=== PATIENT | male | born 1975 | race Caucasian/White ===

== ENCOUNTER → 2016-09-02 | Outpatient (CLI) | payer BC ==
[~2016-09-02] MED LIST: ASPI81TA28 PO; DIPH50TA10 PO; ERGO1CAP35 PO; LEVO50TA PO; LEVO50TA6 PO; LISI-725 PO; MULT-506 PO; PRED20TA PO; PRLSR20 PO
--- NOTE | 2016-09-03 05:43 | PAP/PSG TECHNICIAN REPORT ---
[facility] Pearler Polysomnogram Report Study name: None Report date: 09/03/2016 Study date: 09/02/2016 Referring Physician: Genia Roy M.D. Name: RADHA BOWERS Interpreting Physician: Renzo Roy M.D. Date of : 1975 Pearler: Ladan Lira, PSGT. Sex: Male Age: 41 StudyType: PSG Weight: 304 lbs Height: 41 years, Height 5' 11" Neck Circum:17 inches BMI: 42.39 Medications: synthroid 25 mg. Patient History 41 YR. OLD MALE IN ROOM 7 HERE FOR A DIAGNOSTIC SPLIT NIGHT STUDY.PT. STATES THAT HE HAS UNREFRESHED SLEEP.PT. STATES EVERY COUPLE OF WEEKS HIS HEART WILL FLUTTER AND HIS ARMS TINGLE.ESS= 3, NECK = 17 INCHES. Parameters Monitored NPSG: E1-M2, E2-M1, Fp1-M2, Fp2-M1, F3-M2, F4-M2, F4-M1, C3-M2, C4-M2, C4-M1, O1-M2, O2-M2, O2-M1, T3-M2, T4-M1, P3-M2, P4-M1, CHIN1, CHIN2, HR, EKG, Legs, PFLOW, SNOR, FLOW, CFLOW, Tidal Volume, THOR, ABDO, SpO2, PLTH, CPRESS, ETCO2 Wave, ETCO2, pH Sleep Architecture Sleep Stages Time at Lights Off 10:40:46 PM STAGES Time (min.) TST (%) Time at Lights On 5:19:46 AM Wake 66.5 -- Total Recording Time (TRT) 399.50 min. N1 58.0 17 Total Sleep Period (TSP) 363.5 min. N2 195.5 59 Total Sleep Time (TST) 332.0min. N3 38.0 11 Awake Time 67.5 min. REM 40.5 12 Wake after Sleep Onset 32.0 min. Sleep Efficiency (SE) 83 % Sleep Onset Latency (ILENE) 35.0 min. Number of Stage 1 Shifts None Awakenings 17 Stage Changes 76 Number of REM periods 1 REM 40.5 12 REM Latency 242.5 min. NREM 291.5 88 Body Position Analysis Supine Right Left Side Prone Vertical Total Sleep Time (min.) 36.7 65.3 251.7 317.00 0.0 0.0 Total Sleep Time (%) 5% 20% 76% 95 0% N/A% Total Sleep Time REM (min.) 0.0 0.0 40.5 None 0.0 0.0 Total Sleep Time NREM (min.) 15.0 65.3 211.2 None 0.0 0.0 Intermittent Wake (min.) 21.7 27.7 17.1 None 0.0 0.0 Total Sleep Period (%) 5% None None None None None Arousals Myoclonus (PLM) * Events Count Index Events Count Index Spontaneous 66 12 Events Awake (PLMW) 1 0.9 Respiratory 12 2.2 Events Asleep w/ Arousal (PLMA) 19 3.4 PLM 18 3 Events Asleep w/o Arousal (PLMS) 212 38.3 Snoring 14 3 Total Asleep 231 41.7 Total 110 20 Total 232 35 Respiratory Analysis * CA OA MA CH H RERA Total Count 1 0 0 0 63 1 64 Index 0.2 0.0 0.0 0 11.4 0 11.7 Mean Duration 14.3 0.0 0.0 0.00 21.4 23.3 21.3 Longest Duration 14.3 0.0 0.0 0.00 0.0 23.3 51.2 Respiratory Event Summary Total Supine ~Supine Right Left Prone REM NREM Apneas Count 1 0 1 0 1 N/A 0 1 Index 0.2 0 0 0.0 0.2 N/A 0 0 Hypopneas (4% Desat) Count 63 16 47 2 45 N/A 5 58 Index 11.4 64.0 9 1.8 10.7 N/A 7.4 11.9 Apneas & All Hypopneas Count 64 16 48 2 46 N/A 5 59 Index 11.6 64 9 2 11 N/A 7.4 12.1 Respiratory Events (Audit Clerk+All Hyp+RERA) Count 64 16 49 2 47 N/A 5 59 Index 11.7 64 9 1.8 11.2 N/A 7.4 12.3 Respiratory Related Arousal Count 12 16 10 1 9 N/A 1 11 Index 2.2 8 2 1 2 N/A 1 2 Snoring Analysis Supine Right Left Prone REM NREM Total Snore duration 44.4 min Snores count 17 418 1,201 N/A 247 1,389 1,636 Snore mean duration 1.6 Sec Snores index 68 384 286 N/A 365.9 285.9 295.7 TST with snoring (%) 13.4% SpO2 Analysis Total REM NREM Awake <50% 0.0 min. 0.0 min. 0.0 min. 0.0 min. 51 - 60% 0.0 min. 0.0 min. 0.0 min. 0.0 min. 61 - 70% 0.0 min. 0.0 min. 0.0 min. 0.0 min. 71 - 80% 0.2 min. 0.0 min. 0.0 min. 0.2 min. 81 - 90% 17.3 min. 1.2 min. 15.9 min. 0.1 min. 91 - 100% 372.5 min. 39.3 min. 270.0 min. 63.3 min. Average 94 93 93 94 Minimum SpO2 78 89 85 78 Desaturation Event Index 9.8 8.9 12.1 0.9 # Desat. Events below 89% 11 N/A 11 0 Time(%) with Saturation below 89% 0.5 0.0 0.4 0.1 Time(min.) with Saturation below 89% 2.0 0.0 1.7 0.3 Heart Rate Analysis End Tidal CO2 Analysis Min (bpm) Max (bpm) Average (bpm) TSP (mins) % of TSP Awake 33 281 80 Above 55 mmHg 0.0 0.0 NREM 51 127 68 50-55 mmHg 0.0 0.0 REM 54 127 65 45-50 mmHg 51.2 15.4 Overall 51 127 68 40-45 mmHg 234.2 70.6 35-40 mmHg 40.8 12.3 30-35 mmHg 5.1 1.5 Average ETCO2 0.1 Supplemental O2 Values Minimum O2 level: None Value Start Time End Time Pearler Comments PSG Study slept in the right, left, and supine positions. No cardiac arrhythmia.PLM's noted. No bruxism noted. Snoring was noted and scored as a 3 on a scale of 1 through 5. (0=no snoring, 5=snoring loud enough to be heard through a closed door or down the [address]) Mr. Bowers awoke to use the restroom zero times during the night. Mr. Bowers stated, I did not sleep as well as I do when I am in my own bed. The final report will be interpreted and signed by a sleep physician. The completed physician report will then be placed in the patient medical record. Fragmented sleep displayed, pt. was a restless sleeper tossing and turning often. Moderate snoring and respiratory events seen. Therapy (cm H2O) 0 TIB (min.) 398.5 TST (min.) 332.0 Sleep Onset (min.) 35.0 REM Onset From Sleep (min.) 242.5 Sleep Efficiency % 83 Wakefulness (%) 17 Wakefulness (min.) 67.5 NREM 1 (%) 17 NREM 1 (min.) 58.0 NREM 2 (%) 59 NREM 2 (min.) 195.5 NREM 3 (%) 11 NREM 3 (min.) 38.0 REM (%) 12 REM (min.) 40.5 # Arousals 110 Arousal Index 20 # Snore 1,636 Snore Index 295.7 AHI 11.6 AHI Supine 64 AHI Non-Supine 9 NREM AHI 12.1 REM AHI 7.4 RDI 11.7 # Obstructive Apnea 0 # Central Apnea 1 # Mixed Apnea 0 # Hypopneas 63 RERAs 1 Total Respiratory Events 65 Time Below SpO2 89% (min.) 1.7 Mean NREM SpO2 (%) 93 Mean REM SpO2 (%) 93 Mean Sleep SpO2 (%) 93 Min NREM SpO2 (%) 85 Min REM SpO2 (%) 89 Position Supine (min.) 36.7 Position Non-supine (min.) 317.0 LM Index Sleep 41.7 LM Index NREM 45.7 LM Index REM 13.3 Mean Heart Rate (bpm) 68 Min Heart Rate (bpm) 51
--- NOTE | 2016-09-10 13:31 | POLYSOMNOGRAPH REPORT ---
REFERRING PERSON: Dr. Alexandria Roy. PRECIPITATOR SUPERVISOR: Trudy Lira. Mr. Bowers is a 41-year-old male sent for a diagnostic sleep study. He complains of unrefreshing sleep. Every few weeks, he feels his heart flutter. His arms tingle during sleep. Gardner sleepiness scale score on the evening of this study is 3. BMI is 42.39. Following the technical and digital specifications of the [place] [employer] (AASM) a standard diagnostic polysomnogram was performed monitoring EEG, EOG, EMG (chin and leg deviations), oxygen saturation, body position, digital video, respiratory effort and airflow. The sleep Stage and event scoring was based on the AASM Manual for the Scoring of Sleep and Associated Events 2007 edition. Apneas are defined as a drop in the peak thermal sensor excursion by >90% of baseline for at least 10 seconds. Hypopneas were scored using the 4% oxygen desaturation rule (4A-[employer]ic[employer]) and a decrease in the nasal pressure excursions by >30% of baseline for at least 10 seconds. Respiratory effort-related arousal (RERA's) is defined as a sequence of breaths lasting at least 10 seconds characterized by increasing respiratory effort or flattening of the nasal pressure waveform leading to an arousal from sleep when the sequence of breaths does not meet criteria for an apnea or hypopnea. Apnea Hypopnea index (AHI) is defined as the number of apneas and hypopneas occurring in an hour of sleep. Respiratory disturbance index (RDI) is defined as the number of apneas, hypopneas, and RERA's occurring in an hour of sleep. Mr. Bowers's total sleep period time was 363.5 minutes. Total sleep time was 332 minutes. Sleep efficiency was 83%. Latency to sleep onset was 35 minutes with wake after sleep onset of 32 minutes. Total non-REM sleep time was 291.5 minutes. He spent 17% of that time in N1 sleep, 59% in N2 sleep and 11% in N3 sleep. REM latency was prolonged at 242.5 minutes. Total REM sleep time was 40.5 minutes or 12% of total sleep time. There were 110 cortical arousals from sleep. 14 of these arousals were due to snoring, 18 due to periodic limb movements of sleep, 12 were due to respiratory events, the remaining 66 were spontaneous. There were 231 periodic limb movements noted on this test. Limb movement index was 41.7. Limb movement with arousal index was 3.4. There was 1 central, no obstructive, and no mixed apneas on this test. There were 63 hypopneas and 1 RERA. Apnea-hypopnea index was 11.6. Supine AHI was 64. REM AHI 7.4. There were 1636 snoring events recorded. Total sleep time with snoring was 13.4%. Mean saturation was 94% with desaturations briefly to 78%. Saturations were less than 89% for only 2 minutes of recorded time. There was no cardiac ectopy noted on this study. Mr. Bowers's heart rate ranged from a low of 51 beats per minute to a high of 127 beats per minute during sleep. End-tidal CO2 was recorded on this test. End-tidal CO2s were between 45 and 50 mmHg for 15.4% of total sleep period time, between 40 and 45 mmHg for 70.6%, between 35 and 40 mmHg for 12.3% and between 30 and 35 mmHg for 1.5% of total sleep period time. IMPRESSION AND PLAN: A 41-year-old male with evidence of mild sleep apnea without nocturnal hypoxemia on this sleep study. 1. This patient would likely benefit from positive airway pressure therapy. He could return to the sleep lab for a full night titration and based on those results, be started on equipment at home. A download from his machine can be reviewed in 1 month, both to check compliance as well as AHI and further pressure adjustments can occur at that time. 2. Alternatively, this patient could be started on auto titrating CPAP. A download reviewed from his machine in 1 month, both to check compliance, AHI, and to set him to optimal pressure. 3. Should this patient be unwilling or unable to tolerate CPAP therapy, he could be referred to ear, nose and throat or oral surgery/dental medicine (if appropriate) to discuss alternative treatments for sleep-disordered breathing.
== END | disposition home or self-care (01) ==
LOC: C.NEUR 21:00
PROVIDERS: ATTEND Family Medicine
DX: G47.10 Hypersomnia, unspecified (principal); R06.83 Snoring

== ENCOUNTER 2017-02-04 12:30 | Emergency (ER) | payer BC ==
[~2017-02-04] VITALS: Ht 182.9 cm; Wt 128.8 kg
[~2017-02-04 12:30] MED LIST changes: -ASPI81TA28 PO; -DIPH50TA10 PO; -LEVO50TA6 PO; -MULT-506 PO; -PRED20TA PO
[2017-02-04 12:33] VITALS: TEMP 36.7; Ht 182.9 cm; Wt 128.8 kg
[2017-02-04 12:40] VITALS: O2SAT 100
[2017-02-04] MEDS ORDERED: ASPIRIN 81 MG CHEW PO STA (13:06)
[2017-02-04] MEDS ORDERED: SODIUM CHLORIDE 0.9% 1000ML 1,000 ML IV STA (13:06)
[2017-02-04] MEDS ORDERED: KETOROLAC TROMETHAMINE 30 MG/ML VIAL IV STA (13:06)
[2017-02-04 13:18] LABS: BASO % 0.6 %; BASO ABS # 0.05 K/uL (0-0.2); COMPLETE YES; EOS % 2.9 %; HEMATOCRIT 50.4 % (42-52); IG% 0.1 %; LYMPH % 31.2 %; LYMPH ABS # 2.72 K/uL (1.2-3.4); MEAN CELL VOLUME 87.5 fL (80-100); MEAN CORPUSCULAR HEMOGLOBIN 29.5 pg (25-34); MEAN CORPUSCULAR HGB CONC 33.7 g/dl (32-36); MEAN PLATELET VOLUME 11.6 fL (7.4-10.4); MONO % 6.2 %; PLATELET COUNT 236 K/uL (130-400); RED BLOOD COUNT 5.76 M/uL (4.7-6.1); WHITE BLOOD COUNT 8.71 K/uL (4.8-10.8)
[2017-02-04 13:28] LABS: BLOOD UREA NITROGEN 20 mg/dl (7-18); BUN/CREATININE RATIO 19.6 (10-20); CALCIUM 9.4 mg/dl (8.5-10.1); CARBON DIOXIDE 24 mmol/L (21-32); CHLORIDE 103 mmol/L (98-107); GLUCOSE 90 mg/dl (70-99); POTASSIUM 4.1 mmol/L (3.5-5.1); SODIUM 138 mmol/L (136-145)
[2017-02-04 13:39] LABS: CKMB/CK RATIO 0.7 (0-3.0); THYROID STIMULATING HORMONE 0.405 uIu/ml (0.300-4.500)
--- NOTE | 2017-02-04 13:40 | DIAGNOSTIC IMAGING REPORT ---
CHEST ONE VIEW PORTABLE HISTORY: 41 years-old Male Chest Pain COMPARISON: Chest radiograph 06/10/2015 TECHNIQUE: Portable upright AP view of the chest FINDINGS: Cardiac silhouette is mildly enlarged. The lungs are hypoinflated. No pneumothorax, pleural effusion or focal airspace consolidation. There is no overt pulmonary edema. Bones are grossly intact. IMPRESSION: Pulmonary hypoinflation without acute cardiopulmonary process. The above report was generated using voice recognition software. It may contain grammatical, syntax or spelling errors. Electronically signed by: Lalo Nair M.D. 02/04/2017 1:38 PM Dictated Date/Time: 02/04/2017 1:37 PM
[2017-02-04] MEDS ORDERED: FENTANYL CITRATE INJ 50 MCG/1 ML 2 ML VIAL IV ONE (14:15)
[2017-02-04] MEDS ORDERED: ASPI81TA28 PO (14:42)
[2017-02-04] MEDS ORDERED: MULT-506 PO (14:42)
[2017-02-04] MEDS ORDERED: PERFLUTREN LIPID MICROSPHERE (DEFINITY) IV ONE (15:49)
[2017-02-04 16:22] VITALS: BP 132/85; PULSE 76; O2SAT 97
--- NOTE | 2017-02-04 16:26 | EXERCISE STRESS ECHO ---
*NOTICE TO RECEIVING [employer] This information is strictly Confidential and protected under [place] law. [place] law prohibits you from making any further disclosure of this information unless further disclosure is expressly permitted by the written consent of the person to whom it pertains or is authorized by law. A general authorization for the release of medical or other information is not sufficient for this purpose. Hospital accepts no responsibility if the information is made available to any other person, INCLUDING THE PATIENT. Interpretation Summary * The stress echocardiogram is negative for inducible ischemia. * Exercise capacity is above average. * The stress ECG response was normal * No arrhythmia were noted with stress. * Normal resting wall motion and no stress-induced wall motion abnormality. * -- Conclusions -- * The patient exhibited a hypertensive response with stress. Procedure Details * ECHOEX, CPT #34497 * ECHO COLOR FLOW, CPT #69388 * ECHO DOPPLER, CPT #30738 * A contrast injection of Definity was performed to improve assessment of LV function. * Contrast was injected into an intravenous site in the right arm. * One vial of Definity ultrasound contrast was diluted in normal saline to a total volume of 10 ml. A total of '4' ml of solution was administered during imaging. * Lot # [id number] of Definity utilized for procedure. * Expiration date MAR 01. * The attending nurse who injected the contrast agent was PEDRO WOLF RN. Left Ventricle * The left ventricle is normal in size. * There is mild concentric left ventricular hypertrophy. * Left ventricular systolic function is normal. * Ejection Fraction = 60-65%. * The left ventricular wall motion is normal at rest. * The left ventricular ejection fraction increases normally with stress. The left ventricular end-systolic cavity size reduces post-stress (normal response). The left ventricular wall motion with stress is normal. Right Ventricle * The right ventricle is normal in size and function. Atria * The left atrial size is normal. * Right atrial size is normal. * No ASD detected; PFO is not assessed. Mitral Valve * The mitral valve anatomy is normal. * There is no mitral valve stenosis. * Significant mitral regurgitation is absent. Tricuspid Valve * The tricuspid valve anatomy is normal. * There is no tricuspid stenosis. * Significant tricuspid regurgitation is absent. Aortic Valve * The aortic valve is trileaflet. * Aortic stenosis is absent. * There is no significant aortic regurgitation. Pulmonic Valve * The pulmonary valve is not well seen, but the Doppler examination is normal without significant regurgitation or stenosis. Great Vessels * The aortic root and proximal ascending aorta are normal sized. Pericardium * There is no pericardial effusion. Stress Parameters * Normal baseline electrocardiogram. * Stress ECG: No ST changes. No arrhythmias. * The stress portion of this study was personally supervised by the undersigned interpreting physician. * Rest heart rate was '77' BPM. * Rest blood pressure was '159/94' * Maximum heart rate achieved was 173 bpm. * Maximum heart rate was 96 % of maximum age-predicted heart rate. * Maximum blood pressure was '190/100' * Total exercise time was '08:53' * Maximum exercise MET level achieved was '10.40' METS * Maximum treadmill speed was '3.40' miles per hour. * Maximum treadmill elevation was '14.00'% grade. * The patient exhibited a hypertensive response with stress. MMode 2D Measurements and Calculations IVSd 1.4 cm IVSs 1.8 cm LVIDd 4.8 cm LVIDs 3.0 cm LVPWd 1.2 cm LVPWs 1.2 cm IVS/LVPW 1.2 FS 37.2 % EDV(Teich) 107.4 ml ESV(Teich) 35.5 ml EF(Teich) 67.0 % EDV(cubed) 110.5 ml ESV(cubed) 27.4 ml EF(cubed) 75.2 % % IVS thick 30.9 % % LVPW thick -0.43 % LV mass(C)d 245.9 grams LV mass(C)dI 99.6 grams/m\S\2 LV mass(C)s 161.7 grams LV mass(C)sI 65.5 grams/m\S\2 SV(Teich) 72.0 ml SI(Teich) 29.2 ml/m\S\2 SV(cubed) 83.1 ml SI(cubed) 33.6 ml/m\S\2 Ao root diam 3.5 cm Ao root area 9.6 cm\S\2 ACS 2.3 cm LA dimension 4.2 cm LA/Ao 1.2 LVOT diam 2.1 cm LVOT area 3.5 cm\S\2 LVAd ap4 47.5 cm\S\2 LVLd ap4 9.7 cm EDV(MOD-sp4) 189.1 ml EDV(sp4-el) 197.8 ml LVAs ap4 29.4 cm\S\2 LVLs ap4 8.3 cm ESV(MOD-sp4) 87.1 ml ESV(sp4-el) 88.7 ml EF(MOD-sp4) 54.0 % EF(sp4-el) 55.2 % LVAd ap2 49.7 cm\S\2 LVLd ap2 9.3 cm EDV(MOD-sp2) 217.2 ml EDV(sp2-el) 226.4 ml LVAs ap2 33.5 cm\S\2 LVLs ap2 8.4 cm ESV(MOD-sp2) 107.7 ml ESV(sp2-el) 113.7 ml EF(MOD-sp2) 50.4 % EF(sp2-el) 49.8 % LVLd %diff -4.55 % EDV(MOD-bp) 209.7 ml LVLs %diff 1.2 % ESV(MOD-bp) 98.5 ml EF(MOD-bp) 53.0 % SV(MOD-sp4) 102.0 ml SI(MOD-sp4) 41.3 ml/m\S\2 SV(MOD-sp2) 109.5 ml SI(MOD-sp2) 44.4 ml/m\S\2 SV(MOD-bp) 111.2 ml SI(MOD-bp) 45.0 ml/m\S\2 SV(sp4-el) 109.1 ml SI(sp4-el) 44.2 ml/m\S\2 SV(sp2-el) 112.7 ml SI(sp2-el) 45.6 ml/m\S\2 Doppler Measurements and Calculations MV E max sunitha 77.4 cm/sec MV A max sunitha 46.1 cm/sec MV E/A 1.7 MV P1/2t max sunitha 102.4 cm/sec MV P1/2t 48.6 msec MVA(P1/2t) 4.5 cm\S\2 MV dec slope 617.4 cm/sec\S\2 MV dec time 0.22 sec Ao V2 max 142.3 cm/sec Ao max PG 8.1 mmHg Ao max PG (full) 4.1 mmHg NYDIA(V,A) 2.5 cm\S\2 NYDIA(V,D) 2.5 cm\S\2 LV V1 max PG 4.0 mmHg LV V1 max 100.2 cm/sec PA V2 max 123.6 cm/sec PA max PG 6.1 mmHg
--- NOTE | 2017-02-04 19:00 | EMERGENCY ROOM VISIT NOTE ---
History Report prepared by Deborahibprimo: Harish Wray Under the Supervision of: Dr. Sylvain Caban D.O. First contact with patient: 12:58 Chief Complaint: RAPID HEART RATE Stated Complaint: RAPID HEART RATE,CHEST SENSATIONS Nursing Triage Summary: c/o rapid heart ratae for last 20 min no c/o pain no SOB History of Present Illness The patient is a 41 year old male who presents to the Emergency Room with complaints of constant chest tightness that started an hour ago. He rates his pain as a 1/10 in severity. The patient reports that he was eating lunch when started to feel a pressure in his chest and a tingling sensation in the posterior side of his left shoulder. He also states that about twenty minutes ago he felt nauseous and a rapid heart rate. The patient states that he has had these symptoms before but could not find "anything wrong". He admits that he took Ibuprofen for his symptoms, but denies taking any aspirin. The patient admits to a history of hypertension, but denies a history of high cholesterol, smoking, family cancer, and family blood clots. 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 The patient denies headache, change in vision, fevers, shortness of breath, vomiting , diarrhea, pain with urination, and melena. Source of History: patient Onset: an hour ago Position: chest Symptom Intensity: Timing: constant Modifying Factors (Relieving): ibuprofen Associated Symptoms: + nausea Review of Systems See HPI for pertinent positives & negatives. A total of 10 systems reviewed and were otherwise negative. Past Medical & Surgical Medical Problems: (1) Hypertension Surgical Problems: (1) History of thyroid surgery Family History Diabetes mellitus Hypertension Social History Smoking Status: Never Smoker Smokeless Tobacco Use: Yes Alcohol Use: occasionally Drug Use: none Marital Status: Housing Status: lives with family Occupation Status: employed Current/Historical Medications Scheduled Aspirin (Aspirin Ec), 81 MG PO DAILY Levothyroxine Sodium (Synthroid), 1 TAB PO DAILY Multivitamin (Multivitamin), 1 TAB PO DAILY Allergies Coded Allergies: Penicillins (Unverified Allergy, Unknown, ? as a child, 02/04/17) Physical Exam Vital Signs Date Time Temp Pulse Resp B/P (MAP) Pulse Ox O2 Delivery O2 Flow Rate FiO2 02/04/17 16:22 76 18 132/85 97 Room Air 02/04/17 14:20 79 18 128/89 98 Room Air 02/04/17 13:25 96 16 162/91 99 Room Air 02/04/17 12:48 102 02/04/17 12:40 100 Room Air 02/04/17 12:40 94 18 157/102 100 Room Air 02/04/17 12:33 36.7 116 18 162/91 97 Physical Exam GENERAL: Sitting up in bed, alert, well appearing, well nourished, no distress, non-toxic EYE EXAM: normal conjunctiva, PERRL and EOM's grossly intact OROPHARYNX: no exudate, no erythema, lips, buccal mucosa, and tongue normal and mucous membranes are moist NECK: supple, no nuchal rigidity, no adenopathy, non-tender LUNGS: Clear to auscultation. Normal chest wall mechanics HEART: no murmurs, S1 normal and S2 normal CHEST: Cute reproducible anterior chest wall pain/ same pain. ABDOMEN: abdomen soft, non-tender, normo-active bowel sounds, no masses, no rebound or guarding. BACK: Back is symmetrical on inspection and there is no deformity, no midline tenderness, no CVA tenderness. SKIN: no rashes and no bruising UPPER EXTREMITIES: upper extremities are grossly normal. Radial Pulses equal bilaterally LOWER EXTREMITIES: No pitting edema. Calves are equal bilaterally. NEURO EXAM: Normal sensorium, cranial nerves II-XII grossly intact, normal speech, no gross weakness of arms, no gross weakness of legs. Gross sensation intact. Medical Decision & Procedures ER Provider Diagnostic Interpretation: XRAY: A chest one view study was reviewed, no fracture was seen. CHEST ONE VIEW PORTABLE HISTORY: 41 years-old Male Chest Pain COMPARISON: Chest radiograph 06/10/2015 TECHNIQUE: Portable upright AP view of the chest FINDINGS: Cardiac silhouette is mildly enlarged. The lungs are hypoinflated. No pneumothorax, pleural effusion or focal airspace consolidation. There is no overt pulmonary edema. Bones are grossly intact. IMPRESSION: Pulmonary hypoinflation without acute cardiopulmonary process. The above report was generated using voice recognition software. It may contain grammatical, syntax or spelling errors. Electronically signed by: Lalo Nair M.D. 02/04/2017 1:38 PM Dictated Date/Time: 02/04/2017 1:37 PM Laboratory Results 02/04/17 12:49 Red Blood Count 5.76, Mean Corpuscular Volume 87.5, Mean Corpuscular Hemoglobin 29.5, Mean Corpuscular Hemoglobin Concent 33.7, Mean Platelet Volume 11.6, Neutrophils (%) (Auto) 59.0, Lymphocytes (%) (Auto) 31.2, Monocytes (%) (Auto) 6.2, Eosinophils (%) (Auto) 2.9, Basophils (%) (Auto) 0.6, Neutrophils # (Auto) 5.14, Lymphocytes # (Auto) 2.72, Monocytes # (Auto) 0.54, Eosinophils # (Auto) 0.25, Basophils # (Auto) 0.05 02/04/17 12:49 Test 02/04/17 12:49 02/04/17 13:34 02/04/17 14:51 White Blood Count 8.71 K/uL (4.8-10.8) Red Blood Count 5.76 M/uL (4.7-6.1) Hemoglobin 17.0 g/dL (14.0-18.0) Hematocrit 50.4 % (42-52) Mean Corpuscular Volume 87.5 fL (80-100) Mean Corpuscular Hemoglobin 29.5 pg (25-34) Mean Corpuscular Hemoglobin Concent 33.7 g/dl (32-36) Platelet Count 236 K/uL (130-400) Mean Platelet Volume 11.6 fL (7.4-10.4) Neutrophils (%) (Auto) 59.0 % Lymphocytes (%) (Auto) 31.2 % Monocytes (%) (Auto) 6.2 % Eosinophils (%) (Auto) 2.9 % Basophils (%) (Auto) 0.6 % Neutrophils # (Auto) 5.14 K/uL (1.4-6.5) Lymphocytes # (Auto) 2.72 K/uL (1.2-3.4) Monocytes # (Auto) 0.54 K/uL (0.11-0.59) Eosinophils # (Auto) 0.25 K/uL (0-0.5) Basophils # (Auto) 0.05 K/uL (0-0.2) RDW Standard Deviation 42.4 fL (36.4-46.3) RDW Coefficient of Variation 13.2 % (11.5-14.5) Immature Granulocyte % (Auto) 0.1 % Immature Granulocyte # (Auto) 0.01 K/uL (0.00-0.02) Anion Gap 11.0 mmol/L (3-11) Est Creatinine Clear Calc Drug Dose 134.9 ml/min Estimated GFR () 107.9 Estimated GFR (Non- 93.1 BUN/Creatinine Ratio 19.6 (10-20) Calcium Level 9.4 mg/dl (8.5-10.1) Total Creatine Kinase 407 U/L (39-308) Creatine Kinase MB 3.0 ng/ml (0.5-3.6) Creatine Kinase MB Ratio 0.7 (0-3.0) Thyroid Stimulating Hormone (TSH) 0.405 uIu/ml (0.300-4.500) Chemistry Specimen Hemolysis D-Dimer < 190 ug/L FEU (0-500) Troponin I < 0.015 ng/ml (0-0.045) Laboratory results per my review. Medications Administered Medications (Trade) Dose Ordered Sig/Malika Route Start Time Stop Time Status Last Admin Dose Admin Sodium Chloride 1,000 ml @ 999 mls/hr Q1H1M STAT IV 02/04/17 13:06 02/04/17 14:06 DC 02/04/17 13:22 999 MLS/HR Aspirin (Aspirin Chew) 324 mg NOW STAT PO 02/04/17 13:06 02/04/17 13:07 DC 02/04/17 13:22 324 MG Ketorolac Tromethamine (Toradol Inj) 30 mg NOW STAT IV 02/04/17 13:06 02/04/17 13:07 DC 02/04/17 13:23 30 MG Perflutren Lipid Microsphere (Definity) 5 ml ONE ONCE IV 02/04/17 15:49 02/04/17 15:50 DC 02/04/17 15:50 5 ML ECG Indication: chest pain Rate (beats per minute): 97 Rhythm: normal sinus Findings: no ectopy, other (normal axis) Comparison ECG Date: 06/10/15 Change: no significant change ED Course ED COURSE: Vital signs were reviewed and showed hypertension and tachycardia. The patients medical record was reviewed The above diagnostic studies were performed and reviewed. ED treatments and interventions as stated above. 1301: The patient was evaluated in room B12B. A complete history and physical examination was performed. 1306: Toradol Injection 30 mg IV, Aspirin 324 mg PO, Sodium Chloride 1000 mls @ 999 mls/hr IV. 1408: I reevaluated the patient and he states that his pain is improving. 1415: Fentanyl Injection 50 mcg IV. 1430: I discussed the patient's case with Dr. Rodríguez Cagle, Cardiology [facility]. He will call me back after a stress test is performed. 1450: I reevaluated the patient and he is resting comfortably. I updated him on his results. He denies any pain medication. 1549: Definity 5 ml IV. 1622: I reevaluated the patient and he reports he feels good. 1628: I discussed the patient's case with Dr. Cagle, Cardiology [facility]. He reports that the patient's stress test was unremarkable. 1635: Upon reevaluation, the patient is feeling better. I discussed the findings and the treatment plan with the patient. He verbalizes agreement and understanding. The patient was discharged home. Medical Decision Differential diagnoses includes but is not limited to acute coronary syndrome, myocardial infarction, pericarditis, pulmonary embolus, aortic dissection, pneumonia, pneumothorax, musculoskeletal, shingles, esophageal. Medication Reconciliation: I attest that I have personally reviewed the patient' s current medication list. Blood pressure screening: Patient was found to have an elevated blood pressure and was referred to their primary doctor for recheck and further treatment. Patient is a 41-year-old male who presents the ER for chest pain associated with feeling his heart racing. He has a history of hyperlipidemia and is obese. On exam chest pain does appear to be reproducible area EKG was unremarkable. Troponin's were negative 2 along with d-dimer. Chest x-ray unremarkable. With his age, cholesterol and obesity that was reasonable discussed with cardiology for a stress test. Stress test was negative. Patient was feeling slightly better. He was updated discharged follow with PCP. Discussed with Pt concerning signs and symptoms to watch out for. Pt was instructed to follow up with their PCP and discussed with the patient their option to return to the ED at anytime for persistent or worsening symptoms. The appropriate anticipatory guidance and out-patient management, including indications for return to the emergency department, were explained at length to the patient and understood. Medication Reconcilliation Current Medication List: was personally reviewed by me Blood Pressure Screening Patient's blood pressure: Elevated blood pressure Blood pressure disposition: Referred to PCP Consults Time Called: 1430 Consulting Physician: Dr. Rodríguez Cagle, Cardiology [facility] Returned Call: 1430 I discussed the patient's case with Dr. Rodríguez Cagle, Cardiology [facility]. He will call me back after a stress test is performed. Impression Primary Impression: Precordial chest pain Scribe Attestation The scribe's documentation has been prepared under my direction and personally reviewed by me in its entirety. I confirm that the note above accurately reflects all work, treatment, procedures, and medical decision making performed by me. Departure Information Dispostion Home / Self-Care Referrals Tom Lees M.D. (PCP) Forms HOME CARE DOCUMENTATION FORM, IMPORTANT VISIT INFORMATION, WORK / SCHOOL INSTRUCTIONS Patient Instructions Chest Pain - [facility], My [facility] Additional Instructions Please follow up with your primary care doctor or if you are a student, [facility] with in the next 24 hours. Any worsening of your symptoms, please return to the ED immediately. This includes any fevers greater than 100.4, worsening pain, chest pain, shortness breath, persistent nausea, vomiting, unable to eat or drink, or any other concerning signs or symptoms from your standpoint. You were found to have a blood pressure greater than 120 systolic over 90 diastolic. Due to the new Medicare guidelines, we are now recommending that you follow up with your primary care doctor in regards to this elevated blood pressure.
== END 2017-02-04 16:56 | disposition home or self-care (01) ==
LOC: C.EDB 12:31
DX: R07.2 Precordial pain (principal); I10 Essential (primary) hypertension; Z98.890 Other specified postprocedural states; Z83.3 Family history of diabetes mellitus; Z82.49 Family history of ischemic heart disease and other diseases of the circulatory system; F17.290 Nicotine dependence, other tobacco product, uncomplicated; Z79.82 Long term (current) use of aspirin

== ENCOUNTER 2017-04-08 17:24 | Emergency (ER) | payer BC ==
[~2017-04-08] VITALS: Ht 180.3 cm; Wt 129.4 kg
[~2017-04-08 17:24] MED LIST changes: +ASPI81TA28 PO; -ERGO1CAP35 PO; -LISI-725 PO; +MULT-506 PO; -PRLSR20 PO
[2017-04-08 17:39] VITALS: TEMP 36.8; Ht 180.3 cm; Wt 129.4 kg
[2017-04-08] MEDS ORDERED: LEVO50TA6 PO (18:01)
[2017-04-08] MEDS ORDERED: PRLSR20 PO (18:02)
[2017-04-08] MEDS ORDERED: DEXAMETHASONE SOD INJ 4 MG/ML 5 ML VIAL IM STA (18:09)
[2017-04-08] MEDS ORDERED: DEXAMETHASONE SOD INJ 10 MG/ML VIAL IM STA (18:25)
[2017-04-08] MEDS ORDERED: DIPH50TA10 PO (18:39)
[2017-04-08] MEDS ORDERED: PRED20TA PO (18:49)
--- NOTE | 2017-04-08 18:53 | EMERGENCY ROOM VISIT NOTE ---
History First contact with patient: 18:00 Chief Complaint: SWELLING TO EXTREMITY Stated Complaint: SWOLLEN RING FINGER DUE TO BITE History of Present Illness The patient is a 42 year old male who presents to the Emergency Room via private vehicle accompanied by with complaints of "swollen ring finger due to bite". The patient states that he was at his cabin yesterday around [facility], and woke up today with a bunch of what he believes are bug bites on him. They're very itchy. They're on his bilateral forearms, left side of his abdomen, and his fingers are now swelling. He notes that his tetanus is up- to-date. He has tried Benadryl without relief. He states he also came because his ring finger has his wedding band on, and the finger circulation is now being cut off secondary to swelling. This began around 1 PM. He denies any history of anaphylaxis. Review of Systems A complete 6-point Review of Systems was discussed with the patient, with pertinent positives and negatives listed in the History of Present Illness. All remaining Review of Systems questions can be considered negative unless otherwise specified. Past Medical/Surgical History Medical Problems: (1) Hypertension Surgical Problems: (1) History of thyroid surgery Family History Diabetes mellitus Hypertension Social History Smoking Status: Former Smoker Alcohol Use: occasionally Drug Use: none Marital Status: Housing Status: lives with family Occupation Status: employed Current/Historical Medications Scheduled Aspirin (Aspirin Ec), 81 MG PO DAILY Levothyroxine Sodium (Levothyroxine Sodium), 50 MCG PO DAILY Omeprazole (Prilosec), 20 MG PO DAILY Prednisone (Prednisone), 0 PO DAILY Scheduled PRN Diphenhydramine Hcl (Sleep) (Diphenhydramine Hcl), 50 MG PO BID PRN for ALLERGIC REACTION Physical Exam Vital Signs Date Time Temp Pulse Resp B/P (MAP) Pulse Ox O2 Delivery O2 Flow Rate FiO2 04/08/17 19:16 57 18 159/104 96 04/08/17 17:39 36.8 68 20 178/98 97 Room Air Physical Exam VITAL SIGNS - Vital signs and nursing notes were reviewed. Stable. GENERAL -42-year-old male appearing his stated age who is in no acute distress. Communicates well with provider and answers questions appropriately. SKIN - there are small punctate slightly raised erythematous 0.5 cm circular lesions over the patient's left side of his abdomen, bilateral ventral forearms , fingers, and feet. No particular meningeal rash. HEAD - NC/AT. EYES - PERRL with EOMI bilaterally. Sclera anicteric. EARS - No deformities of external structures noted on gross examination bilaterally. NOSE - Midline and without cyanosis. No epistaxis or purulent drainage noted. MOUTH/OROPHARYNX - Without perioral cyanosis. NECK - No nuchal rigidity. LUNGS - Chest wall symmetric without accessory muscle use, intercostals retractions, or central cyanosis. Normal vesicular breath sounds CTA B/L. No wheezes, rales, or rhonchi appreciated. CARDIAC - RRR with S1/S2. No murmur, rubs, or gallops appreciated. EXTREMITIES - No clubbing or peripheral cyanosis. No pretibial edema present. There is erythema and edema of the patient's right second digit, and left fourth digit. +5/5 strength noted in UE/LE bilaterally. NEUROLOGIC - Cranial nerves II through XII grossly intact. PSYCH - A&O, and cooperates fully with examiner. Pt is very pleasant and interacts well with examiner. Medical Decision & Procedures Medications Administered Medications (Trade) Dose Ordered Sig/Malika Route Start Time Stop Time Status Last Admin Dose Admin Dexamethasone Sodium Phosphate (Decadron Inj) 10 mg NOW STAT IM 04/08/17 18:25 04/08/17 18:27 DC 04/08/17 18:47 10 MG Medical Decision Patient was seen and evaluated as above. He presents to us today with small red dots on his body since this morning upon awakening. He did mow the grass yesterday. Nobody else that he was with has these bites on him. I believe he likely has contact dermatitis secondary to something that he may have come in to contact while mowing yesterday. I suspect if this were bug bites the family would also have this. There is nothing crawling on his body that I can appreciate to exam. Before I even examined the patient, I was emergently called to the room to help extract the patient's ring off of his left ring finger. It was already cut by the nurse. This was at patient request. I then utilized two hemostats to open the ring band. It was able to be removed without difficulty. He was given 10 mg of dexamethasone IM. He had Benadryl prior to coming here. I will treat him for contact dermatitis,/allergic reaction. No evidence of anaphylaxis. He was given the Decadron, and reevaluated and did not appear to be worsening. The case was discussed with the attending physician. He'll be given a course of prednisone taper, encouraged exam tach as well as Benadryl over the next few days. He is to follow-up with his family doctor regarding his visit here. His blood pressure was elevated, I believe likely secondary to situation. There is no evidence of air way compromise on exam. At this time to a stable for outpatient management. He was educated upon management, educated upon worrisome symptoms in which to return, had questions about issued, and was discharged home. In the evaluation treatment this patient following differential diagnoses were entertained: Allergic reaction, contact dermatitis, bites, among others. Impression Primary Impression: Allergic reaction Additional Impression: Contact dermatitis Departure Information Dispostion Home / Self-Care Condition GOOD Prescriptions Prednisone (Prednisone) 20 Mg Tab 0 PO DAILY, #18 TAB 3 DAILY FOR 3 DAYS, THEN 2 DAILY FOR 3 DAYS, THEN 1 DAILY FOR 3 DAYS. Prov: Jaiden Betancur PA-C 04/08/17 Referrals Tom Lees M.D. (PCP) Patient Instructions My [facility] Additional Instructions You have been treated in the Emergency Department for an Allergic Reaction. You have been treated and monitored in the Emergency Department appropriately. You should take Benadryl (diphenhydramine) 25 mg orally every 6 hours for the next 7 days. This medication is [id number] and you will NOT need a prescription to purchase this at your local pharmacy. You should continue taking the Benadryl for the COMPLETION of the 5-7 days. This is to prevent a rebound allergic reaction in the event that allergens are still present in your system. You should take Zantac (ranitidine) 75 mg orally once daily for the next 7 days. This medication is [id number] and you will NOT need a prescription to purchase this at your local pharmacy. You should continue taking the Zantac for the COMPLETION of the 7 days. This is to prevent a rebound allergic reaction in the event that allergens are still present in your system. You have been prescribed Prednisone to be taken orally once a day. This is an anti-inflammatory medicine to be used to help minimize your symptoms. You should take the COMPLETE course of the medication. Be careful as to not take large amounts of aspirin with the steroid. As with every Emergency Department visit, you should follow-up with your primary care provider in 2-3 days for reevaluation. Return to the Emergency Department if your current symptoms worsen despite treatment course outlined above, or if you develop any of the following symptoms : wheezing, tongue or face swelling, tightness in your throat, shortness of breath, or fainting. Problem Qualifiers
[2017-04-08 19:16] VITALS: BP 159/104; PULSE 57; O2SAT 96
== END 2017-04-08 19:17 | disposition home or self-care (01) ==
LOC: C.EDB 17:26 → C.EDD 19:17
DX: L25.9 Unspecified contact dermatitis, unspecified cause (principal); I10 Essential (primary) hypertension; Z87.891 Personal history of nicotine dependence; Z98.890 Other specified postprocedural states; Z83.3 Family history of diabetes mellitus; Z82.49 Family history of ischemic heart disease and other diseases of the circulatory system; Z79.82 Long term (current) use of aspirin